=== PATIENT | female | born 1965 ===

== ENCOUNTER 2017-01-29 06:58 | Outpatient (CLI) | payer OTHER ==
[2017-01-29 08:16] LABS: #Basophils 0.1 thou/uL (0.0-0.2); #Eosinphils 0.1 thou/uL (0.0-0.7); #Lymphocytes 1.6 thou/uL (1.20-3.40); #Monocytes 0.4 thou/uL (0.11-0.59); #Neutrophils 4.3 thou/uL (1.40-6.50); %Basophils 1.1 % (0.0-1.0); %Eosinophils 1.7 % (0.0-10.0); %Lymphocytes 25.3 % (21.0-51.0); Hemoglobin 8.4 g/dL (12.0-16.0); Mean Corpuscular HGB CONC 29.3 g/dL (32.0-36.0); Mean Corpuscular Hemoglobin 19.6 pg (27.0-31.0); Mean Corpuscular Volume 66.9 fl (81.0-99.0); Mean Platelet Volume 7.6 fL (7.4-10.4); Platelet Count 278 thou/uL (130-400); RBC Distribution Width 15.8 % (11.5-14.5); Red Blood Cell (RBC) Count 4.29 mill/uL (4.20-5.40); White Blood Cell (WBC) Count 6.5 thou/uL (4.8-10.8)
[2017-01-29 08:26] LABS: ALT (SGPT) 11 U/L (8-55); AST (SGOT) 12 U/L (5-34); Albumin 3.7 g/dL (3.5-5.0); Alkaline Phosphatase 150 U/L (40-150); Anion Gap 12 mmol/L (10-20); BUN (Urea Nitrogen) 13 mg/dL (9.8-20.1); Bilirubin, Total 0.7 mg/dL (0.2-1.2); Calc. Creatinine Clearance 0 mL/min (70-130); Calcium 8.4 mg/dL (7.8-10.44); Carbon Dioxide 26 mmol/L (22-29); Chloride 104 mmol/L (98-107); Estimated GFR-MDRD 89; Globulin 2.7 g/dL (2.4-3.5); Glucose 93 mg/dL (70-105); Potassium 3.2 mmol/L (3.5-5.1); Protein, Total 6.4 g/dL (6.0-8.3); Sodium 139 mmol/L (136-145)
[2017-01-29 08:27] LABS: Hypochromia MODERATE=16-30 cells (100X) (0-5/hpf); Microcytosis SLIGHT = 6-15 cells (100X) (0-5/hpf)
[2017-01-29 08:33] LABS: Thyroid Stimulating Hormone 1.7005 uIU/mL (0.35-4.94)
[2017-01-29 15:44] LABS: Eosinophils 2 % (0-10); Hemoglobin 7.7 g/dL (12.0-16.0); Hypochromia MODERATE=16-30 cells (100X) (0-5/hpf); Lymphocytes 35 % (21-51); MDiff Complete? YES; Mean Corpuscular HGB CONC 29.8 g/dL (32.0-36.0); Mean Corpuscular Hemoglobin 19.7 pg (27.0-31.0); Mean Platelet Volume 6.8 fL (7.4-10.4); Microcytosis SLIGHT = 6-15 cells (100X) (0-5/hpf); Monocytes 4 % (0-10); Neutrophil 59 % (42-75); PLT Morphology Comment Appears Adequate; Platelet Count 242 thou/uL (130-400); RBC Distribution Width 15.5 % (11.5-14.5); Red Blood Cell (RBC) Count 3.93 mill/uL (4.20-5.40); White Blood Cell (WBC) Count 5.5 thou/uL (4.8-10.8)
[2017-01-30 17:30] LABS: Ferritin 3.24 ng/mL (10-291)
[2017-01-30 17:34] LABS: Folate (Folic Acid) 9.4 ng/mL (7.0-31.4)
[2017-01-30 18:46] LABS: Iron 14 ug/dL (50-170); Iron Binding Capacity, Total 405 mcg/dL (265-497); Transferrin, Serum 324 mg/dL (180-382)
== END 2017-01-29 06:59 | disposition home or self-care (01) ==
LOC: MADLABBHPM 06:58
PROVIDERS: ATTEND Family Medicine
DX: D50.9 Iron deficiency anemia, unspecified (principal); R00.2 Palpitations
CPT/HCPCS: 36415; 80053; 82607; 82728; 82746; 83540; 83550; 84443; 84466; 85007; 85025; 85027; 85060; 93005; 93010